=== PATIENT | male | born 1980 | race Hispanic/Latino ===

== ENCOUNTER 2018-03-18 09:27 | Emergency (ER) | payer SELFPAY ==
--- NOTE | 2018-03-18 10:50 | EDPHYS ---
Physician Documentation [facility] Name: Helen Moore Age: 37 yrs Sex: Male : 1980 Arrival Date: 03/18/2018 Time: 09:30 Bed 20 Private MD: None, None ED Physician Jesse Mayberry HPI: 03/18 09:55 This 37 yrs old Male presents to ER via Ambulatory with complaints of Sore Throat, cp Productive Cough - BLOOD. 09:56 The patient or guardian reports cough, with productive sputum, that is purulent. Onset: cp The symptoms/episode began/occurred 10 day(s) ago. Associated signs and symptoms: Pertinent positives: sore throat, Pertinent negatives: diarrhea, fever, vomiting. Severity of symptoms: in the emergency department the symptoms are unchanged despite home interventions. Historical: - Allergies: 09:46 No Known Allergies; iw - Home Meds: 09:46 None [Active]; iw - PMHx: 09:46 None; iw - PSHx: 09:46 Hernia repair; iw - Immunization history:: Adult Immunizations not up to date. - Social history:: Smoking status: Patient uses tobacco products, smokes one-half pack cigarettes per day. - Ebola Screening: : Patient negative for fever greater than or equal to 101.5 degrees Fahrenheit, and additional compatible Ebola Virus Disease symptoms Patient denies exposure to infectious person Patient denies travel to an Ebola-affected area in the 21 days before illness onset No symptoms or risks identified at this time. ROS: 09:57 Eyes: Negative for injury, pain, redness, and discharge. cp 09:57 Constitutional: Negative for body aches, chills, fever, poor PO intake. 09:57 ENT: Positive for sinus congestion, sore throat, Negative for drainage from ear(s), ear pain, difficulty swallowing, difficulty handling secretions. 09:57 Neck: Negative for pain with movement, pain at rest, stiffness. 09:57 Cardiovascular: Negative for chest pain, edema, palpitations. 09:57 Respiratory: Positive for cough, hemoptysis, Negative for dyspnea on exertion, shortness of breath, wheezing. 09:57 Abdomen/GI: Negative for abdominal pain, nausea, vomiting, and diarrhea. 09:57 Skin: Negative for cellulitis, rash. 09:57 All other systems are negative. Exam: 09:59 Head/Face: Normocephalic, atraumatic. cp 09:59 Constitutional: The patient appears in no acute distress, alert, awake, non-diaphoretic, non-toxic, well developed, well nourished. 10:00 Eyes: Periorbital structures: appear normal, Conjunctiva: normal, no exudate, no cp injection, Sclera: no appreciated abnormality, Lids and lashes: appear normal, bilaterally. 10:00 ENT: External ear(s): are unremarkable, Ear canal(s): are normal, clear, TM's: bulging, is not appreciated, bilaterally, dullness, bilaterally, erythema, is not appreciated, bilaterally, Nose: is normal, Mouth: Lips: moist, Oral mucosa: pink and intact, moist, Posterior pharynx: Airway: no evidence of obstruction, patent, Tonsils: no enlargement, no exudate, Uvula: midline, swelling, is not appreciated, erythema, that is mild, exudate, is not appreciated, Voice: is normal. 10:00 Neck: ROM/movement: is normal, is supple, without pain, no range of motions limitations, no meningismus, no nuchal rigidity, Lymph nodes: no appreciated lymphadenopathy. 10:00 Chest/axilla: Inspection: normal, Palpation: is normal, no crepitus, no tenderness. 10:00 Cardiovascular: Rate: normal, Rhythm: regular, Edema: is not appreciated, JVD: is not appreciated. 10:00 Respiratory: the patient does not display signs of respiratory distress, Respirations: normal, no use of accessory muscles, no retractions, no splinting, no tachypnea, labored breathing, is not present, Breath sounds: decreased breath sounds, are not appreciated, stridor, is not appreciated, + upper airway congestion. wheezing: is not appreciated. 10:00 Abdomen/GI: Inspection: abdomen appears normal, Palpation: abdomen is soft and non-tender, in all quadrants. 10:00 Back: pain, is absent, ROM is normal. 10:00 Skin: cellulitis, is not appreciated, no rash present. 10:00 Neuro: Orientation: to person, place \T\ time. Mentation: is normal, Motor: moves all fours, strength is normal, Sensation: is normal. Vital Signs: 09:46 BP 149 / 96; Pulse 78; Resp 16 S; Temp 97.6(TE); Pulse Ox 97% on R/A; Weight 86.18 kg; iw Height 5 ft. 9 in. (175.26 cm); Pain 6; 09:46 Body Mass Index 28.06 (86.18 kg, 175.26 cm) iw MDM: 09:38 Patient medically screened. cp 10:00 Differential diagnosis: bronchitis, URI, pneumonia, strep throat. cp 10:49 Data reviewed: vital signs, nurses notes, lab test result(s), radiologic studies, plain cp films. 10:49 Test interpretation: by ED physician or midlevel provider: plain radiologic studies. cp Counseling: I had a detailed discussion with the patient and/or guardian regarding: the historical points, exam findings, and any diagnostic results supporting the discharge/admit diagnosis, lab results, radiology results, to return to the emergency department if symptoms worsen or persist or if there are any questions or concerns that arise at home. 03/18 09:46 Order name: Strep cp 03/18 10:21 Order name: Group A Streptococcus Rapid Sc; Complete Time: 10:48 EDMS 03/18 10:48 Interpretation: Reviewed. cp 03/18 09:46 Order name: XRAY Chest Pa And Lat (2 Views) cp Administered Medications: No medications were administered Disposition: 18:46 Co-signature as Attending Physician, Jesse Mayberry MD. Disposition: 03/18/18 10:49 Discharged to Home. Impression: Acute bronchitis. - Condition is Stable. - Discharge Instructions: Acute Bronchitis, Adult. - Prescriptions for Tessalon Perles 100 mg Oral Capsule - take 1 capsule by ORAL route every 8 hours As needed; 15 capsule. Zithromax Z- Ludwig 250 mg Oral Tablet - take 1 tablet by ORAL route as directed for 5 days Day 1 - take two (2) tablets one time. Day 2, 3, 4 , 5 take one (1) tablet once daily.; 6 tablet. Albuterol Sulfate 90 mcg/actuation - inhale 1-2 puff by INHALATION route every 4-6 hours; 1 Inhaler. - Medication Reconciliation Form, Thank You Letter, Antibiotic Education, Prescription Opioid Use form. - Follow up: Private Physician; When: 2 - 3 days; Reason: Recheck today's complaints. - Problem is new. - Symptoms are unchanged. Signatures: Dispatcher [employer] EDAlex Yates, AUTOMATION APPLICATION ENGINEER AUTOMATION APPLICATION ENGINEER em Amita Portillo RN RN Doug Villatoro PA PA Jesse Rushing MD MD gs Corrections: (The following items were deleted from the chart) 10:56 10:49 03/18/2018 10:49 Discharged to Home. Impression: Acute bronchitis. Condition is em Stable. Forms are Medication Reconciliation Form, Thank You Letter, Antibiotic Education, Prescription Opioid Use. Follow up: Private Physician; When: 2 - 3 days; Reason: Recheck today's complaints. Problem is new. Symptoms are unchanged. cp
--- NOTE | 2018-03-18 10:50 | ER ---
Nurse's Notes [facility] Name: Helen Moore Age: 37 yrs Sex: Male : 1980 Arrival Date: 03/18/2018 Time: 09:30 Bed 20 Private MD: None, None Diagnosis: Acute bronchitis Presentation: 03/18 09:41 Presenting complaint: Patient states: has been sick for 8-9 days, cough, sore throat, iw no fever, has been taking penicillin. Transition of care: patient was not received from another setting of care. Onset of symptoms was March 10, 2018. Risk Assessment: Do you want to hurt yourself or someone else? Patient reports no desire to harm self or others. Initial Sepsis Screen: Does the patient meet any 2 criteria? No. Patient's initial sepsis screen is negative. Does the patient have a suspected source of infection? No. Patient's initial sepsis screen is negative. Care prior to arrival: None. 09:41 Method Of Arrival: Ambulatory iw 09:41 Acuity: MUSTAPHA 4 iw Historical: - Allergies: 09:46 No Known Allergies; iw - Home Meds: 09:46 None [Active]; iw - PMHx: 09:46 None; iw - PSHx: 09:46 Hernia repair; iw - Immunization history:: Adult Immunizations not up to date. - Social history:: Smoking status: Patient uses tobacco products, smokes one-half pack cigarettes per day. - Ebola Screening: : Patient negative for fever greater than or equal to 101.5 degrees Fahrenheit, and additional compatible Ebola Virus Disease symptoms Patient denies exposure to infectious person Patient denies travel to an Ebola-affected area in the 21 days before illness onset No symptoms or risks identified at this time. Screenin:59 Abuse screen: Denies threats or abuse. Nutritional screening: No deficits noted. em Tuberculosis screening: No symptoms or risk factors identified. Fall Risk None identified. Assessment: 10:00 General: Appears in no apparent distress. comfortable, Behavior is calm, cooperative, em Reports fever for. Pain: Complains of pain in throat Pain currently is 6 out of 10 on a pain scale. Neuro: Level of Consciousness is awake, alert, obeys commands, Oriented to person, place, time, situation. Cardiovascular: Capillary refill < 3 seconds Patient's skin is warm and dry. Respiratory: Reports cough that is productive, pain with cough Airway is patent Respiratory effort is even, unlabored, Respiratory pattern is regular, symmetrical, Breath sounds are clear bilaterally. GI: Abdomen is flat, Patient currently denies nausea, vomiting. : No signs and/or symptoms were reported regarding the genitourinary system. EENT: Nares are clear Oral mucosa is moist. Throat is reddened bilaterally. Derm: Skin is intact, is healthy with good turgor, Skin is pink, warm \T\ dry. Musculoskeletal: Capillary refill < 3 seconds, Range of motion: intact in all extremities. 10:15 Reassessment: Patient appears in no apparent distress at this time. I agree with above iw assessment by Alex Chase LVN. 10:43 Reassessment: Patient appears in no apparent distress at this time. pt wheeled to em radiology dept. Vital Signs: 09:46 BP 149 / 96; Pulse 78; Resp 16 S; Temp 97.6(TE); Pulse Ox 97% on R/A; Weight 86.18 kg; iw Height 5 ft. 9 in. (175.26 cm); Pain 6/10; 09:46 Body Mass Index 28.06 (86.18 kg, 175.26 cm) iw ED Course: 09:30 Patient arrived in ED. sb2 09:31 None, None is Private Physician. sb2 09:38 Doug Helm PA is PHCP. cp 09:38 Jesse Mayberry MD is Attending Physician. cp 09:40 Alex Chase LVN is Primary Nurse. em 09:46 Triage completed. iw 09:46 Arm band placed on. iw 09:59 Patient has correct armband on for positive identification. Placed in gown. Bed in low em position. Call light in reach. 09:59 Strep swab sent to lab. em 10:56 No provider procedures requiring assistance completed. Patient did not have IV access em during this emergency room visit. Administered Medications: No medications were administered Outcome: 10:49 Discharge ordered by . cp 10:56 Discharged to home ambulatory. em 10:56 Condition: good 10:56 Discharge instructions given to patient, Instructed on discharge instructions, follow up and referral plans. medication usage, Demonstrated understanding of instructions, follow-up care, medications, Prescriptions given X 3. 10:56 Patient left the ED. em Signatures: Alex Chase, FIELD CROP GROWER FIELD CROP GROWER Amita River, RN RN iw Doug Helm PA PA cp Billeau, Sheri sb2
--- NOTE | 2018-03-18 11:02 | RAD REPORT ---
EXAM DESCRIPTION: Valentín Watson (2 Views)03/18/2018 10:49 am CLINICAL HISTORY: Cough COMPARISON: None FINDINGS: The lungs appear clear of acute infiltrate. The heart is normal size IMPRESSION: No acute abnormalities displayed
== END 2018-03-18 10:56 | disposition home or self-care (01) ==
LOC: ER 09:27
DX: J20.9 Acute bronchitis, unspecified (principal); F17.210 Nicotine dependence, cigarettes, uncomplicated
CPT/HCPCS: 71046; 87070; 87081; 99283

== ENCOUNTER 2018-04-25 08:43 | Emergency (ER) | payer SELFPAY ==
--- NOTE | 2018-04-25 09:37 | ER ---
Nurse's Notes [facility] Name: Helen Moore Age: 37 yrs Sex: Male : 1980 Arrival Date: 04/25/2018 Time: 08:44 Bed 20 Private MD: Diagnosis: Acute bronchitis Presentation: 04/25 08:47 Presenting complaint: Patient states: productive cough with green sputum x 5 days ago. aa5 Pt reports vomiting and fever x 5 days ago. Pt states "my lungs hurt". 08:47 Transition of care: patient was not received from another setting of care. Onset of aa5 symptoms was April 2018. Risk Assessment: Do you want to hurt yourself or someone else? Patient reports no desire to harm self or others. Care prior to arrival: None. 08:47 Method Of Arrival: Ambulatory aa 08:47 Acuity: MUSTAPHA 3 aa5 09:05 Initial Sepsis Screen: Does the patient meet any 2 criteria? HR > 90 bpm. Does the aa5 patient have a suspected source of infection? Yes: Productive cough/pneumonia. Triage Assessment: 08:55 General: Appears in no apparent distress. comfortable, Behavior is cooperative, bp appropriate for age, anxious. Pain: Complains of pain in GENERALIZED. Historical: - Allergies: 08:47 No Known Allergies; aa5 - PMHx: 08:47 None; aa5 - PSHx: 08:47 Hernia repair; aa5 - Immunization history:: Adult Immunizations up to date. - Ebola Screening: : No symptoms or risks identified at this time. - Social history:: Smoking status: unknown. Screenin:57 Abuse screen: Denies threats or abuse. Denies injuries from another. Nutritional bp screening: No deficits noted. Tuberculosis screening: No symptoms or risk factors identified. Fall Risk None identified. Assessment: 08:56 General: Appears in no apparent distress. comfortable, Behavior is cooperative, bp appropriate for age, anxious. Pain: Complains of pain in GENERALIZED. Neuro: Level of Consciousness is awake, alert, obeys commands, Oriented to person, place, time, situation, Appropriate for age. Cardiovascular: No deficits noted. Respiratory: Reports cough that is productive. GI: Reports vomiting. : No signs and/or symptoms were reported regarding the genitourinary system. EENT: No deficits noted. Derm: No deficits noted. Musculoskeletal: Circulation, motion, and sensation intact. Range of motion: intact in all extremities. 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 PT SPEAKING WITH RAPID, PRESSURED SPEECH. 09:41 Reassessment: Pt opened curtain and Room 20's door and stated "if you are talking about aa5 me I will leave home right now (pt referring to ER staff)". Pt was assured staff was not speaking about him. Pt states "Ok that's fine". Pt pacing in room appears anxious. Pt states no complaints at this time, MANAGER BUSINESS INFORMATION notified. . 09:49 Reassessment: PT D/C HOME AMBULATORY, DX WITH ACUTE BRONCHITIS. PT TOOK URINE CUP FROM bp DRAWERS, TELLING STAFF HE WANTED IT " A SOUVENIR.". Vital Signs: 08:48 Weight 88.45 kg (R); Height 5 ft. 9 in. (175.26 cm) (R); Pain 10/10; aa5 08:54 BP 143 / 91; Pulse 93; Resp 14; Temp 99.3; Pulse Ox 95% ; bp 08:48 Body Mass Index 28.80 (88.45 kg, 175.26 cm) aa5 ED Course: 08:44 Patient arrived in ED. rg4 08:46 Rony Chandler, VIET is Primary Nurse. bp 08:49 Arm band placed on. aa5 08:51 Kyra Luna FNP-C is PHCP. snw 08:51 Luís Andrade MD is Attending Physician. snw 08:51 Triage completed. aa5 08:57 Patient has correct armband on for positive identification. bp 09:31 X-ray completed. Patient tolerated procedure well. Patient moved back from radiology. sw 09:33 Chest Pa And Lat (2 Views) XRAY In Process Unspecified. EDMS 09:42 No provider procedures requiring assistance completed. Patient did not have IV access bp during this emergency room visit. Administered Medications: No medications were administered Outcome: 09:37 Discharge ordered by . snw 09:46 Discharged to home ambulatory. bp 09:46 Discharge instructions given to patient, Instructed on discharge instructions, follow up and referral plans. Demonstrated understanding of instructions, follow-up care, medications, Prescriptions given X 2. 09:46 Condition: stable bp 09:47 Patient left the ED. iw Signatures: Dispatcher [employer] EDMS Kyra Luna, DIGITAL RECRUITER-C DIGITAL RECRUITER-Csnw Amita Portillo, RN RN Nay Thompson RN RN aa5 Isa Toussaint Rubi rg4 Rony Chandler RN RN bp Corrections: (The following items were deleted from the chart) 09:06 08:47 Presenting complaint: Patient states: productive cough with green sputum x 5 days aa5 ago. Pt reports vomiting and fever x 5 days ago. 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 PT SPEAKING WITH RAPID, PRESSURED SPEECH. bp
--- NOTE | 2018-04-25 09:37 | EDPHYS ---
Physician Documentation [facility] Name: Helen Moore Age: 37 yrs Sex: Male : 1980 Arrival Date: 04/25/2018 Time: 08:44 Bed 20 Private MD: ED Physician Luís Andrade HPI: 04/25 09:00 This 37 yrs old Male presents to ER via Ambulatory with complaints of Flu snw Symptoms. 09:00 The patient or guardian reports airway noise, cough. Onset: The symptoms/episode snw began/occurred suddenly, 5 day(s) ago, and became persistent. Associated signs and symptoms: Pertinent positives: fever, sore throat. Severity of symptoms: At their worst the symptoms were moderate. The patient has experienced a previous episode, last month. The patient has not recently seen a physician. Historical: - Allergies: 08:47 No Known Allergies; aa5 - PMHx: 08:47 None; aa5 - PSHx: 08:47 Hernia repair; aa5 - Immunization history:: Adult Immunizations up to date. - Ebola Screening: : No symptoms or risks identified at this time. - Social history:: Smoking status: unknown. ROS: 08:58 Eyes: Negative for injury, pain, redness, and discharge. snw 08:58 Neck: Negative for injury, pain, and swelling, Cardiovascular: Negative for chest pain, palpitations, and edema, Abdomen/GI: Negative for abdominal pain, nausea, vomiting, diarrhea, and constipation, Back: Negative for injury and pain, : Negative for injury, bleeding, discharge, and swelling, MS/Extremity: Negative for injury and deformity, Skin: Negative for injury, rash, and discoloration, Neuro: Negative for headache, weakness, numbness, tingling, and seizure. 08:58 Constitutional: Positive for body aches, fever, malaise. 08:58 ENT: Positive for sore throat. 08:58 Respiratory: Positive for cough, with no reported sputum. Exam: 08:58 Head/Face: Normocephalic, atraumatic. Eyes: Pupils equal round and reactive to light, snw extra-ocular motions intact. Lids and lashes normal. Conjunctiva and sclera are non-icteric and not injected. Cornea within normal limits. Periorbital areas with no swelling, redness, or edema. ENT: Nares patent. No nasal discharge, no septal abnormalities noted. Tympanic membranes are normal and external auditory canals are clear. Oropharynx with moderate/severe redness, no swelling, or masses, exudates, or evidence of obstruction, uvula midline. Mucous membranes moist. Hoarse voice Neck: Trachea midline, no thyromegaly or masses palpated, and no cervical lymphadenopathy. Supple, full range of motion without nuchal rigidity, or vertebral point tenderness. No Meningismus. Chest/axilla: Normal chest wall appearance and motion. Nontender with no deformity. No lesions are appreciated. Cardiovascular: Regular rate and rhythm with a normal S1 and S2. No gallops, murmurs, or rubs. Normal PMI, no JVD. No pulse deficits. Respiratory: Lungs have equal breath sounds bilaterally, clear to auscultation and percussion. No rales, rhonchi or wheezes noted. No increased work of breathing, no retractions or nasal flaring. Abdomen/GI: Soft, non-tender, with normal bowel sounds. No distension or tympany. No guarding or rebound. No evidence of tenderness throughout. Back: No spinal tenderness. No costovertebral tenderness. Full range of motion. Skin: Warm, dry with normal turgor. Normal color with no rashes, no lesions, and no evidence of cellulitis. MS/ Extremity: Pulses equal, no cyanosis. Neurovascular intact. Full, normal range of motion. Neuro: Awake and alert, GCS 15, oriented to person, place, time, and situation. Cranial nerves II-XII grossly intact. Motor strength 5/5 in all extremities. Sensory grossly intact. Cerebellar exam normal. Normal gait. Psych: Awake, alert, with orientation to person, place and time. Behavior, mood, and affect are within normal limits. 08:58 Constitutional: The patient appears alert, awake, restless. Vital Signs: 08:48 Weight 88.45 kg (R); Height 5 ft. 9 in. (175.26 cm) (R); Pain 10/10; aa5 08:54 BP 143 / 91; Pulse 93; Resp 14; Temp 99.3; Pulse Ox 95% ; bp 08:48 Body Mass Index 28.80 (88.45 kg, 175.26 cm) aa5 MDM: 08:52 Patient medically screened. snw 09:51 Data reviewed: vital signs, nurses notes. Data interpreted: Pulse oximetry: on room air snw is 95 %. Interpretation: acceptable. Counseling: I had a detailed discussion with the patient and/or guardian regarding: the historical points, exam findings, and any diagnostic results supporting the discharge/admit diagnosis, the presence of at least one elevated blood pressure reading (>120/80) during this emergency department visit, radiology results, the need for outpatient follow up, to return to the emergency department if symptoms worsen or persist or if there are any questions or concerns that arise at home. Special discussion: I have referred the patient to see his PCP for further evaluation of high blood pressure. Based on the history and exam findings, there is no indication for further emergent testing or inpatient evaluation. I discussed with the patient/guardian the need to see the primary care provider for further evaluation of the symptoms. 04/25 08:52 Order name: Chest Pa And Lat (2 Views) XRAY snw Administered Medications: No medications were administered Disposition: 11:39 Co-signature as Attending Physician, Luís Andrade MD. rn Disposition: 04/25/18 09:37 Discharged to Home. Impression: Acute bronchitis. - Condition is Stable. - Discharge Instructions: Acute Bronchitis, Adult, Fever, Adult, Hypertension, Cough, Adult, Rehydration, Adult. - Prescriptions for Zyrtec 10 mg Oral Tablet - take 1 tablet by ORAL route once daily As needed; 20 tablet. Prednisone 20 mg Oral Tablet - take 2 tablet by ORAL route once daily for 5 days; 10 tablet. - Work release form, Medication Reconciliation Form, Thank You Letter, Antibiotic Education, Prescription Opioid Use form. - Follow up: Private Physician; When: 2 - 3 days; Reason: Recheck today's complaints, Continuance of care, Re-evaluation by your physician. Follow up: Emergency Department; When: As needed; Reason: Worsening of condition. Signatures: Dispatcher [employer] EDKyra Larson, TONI-C DEFENSIVE LINE COACH-Csnw Amita Portillo, Luís Resendez RN, MD MD rn Calderon, Audri, RN RN aa5 Rony Chandler RN RN bp Corrections: (The following items were deleted from the chart) 09:47 09:37 04/25/2018 09:37 Discharged to Home. Impression: Acute bronchitis. Condition is iw Stable. Discharge Instructions: Acute Bronchitis, Adult, Fever, Adult, Hypertension, Cough, Adult, Rehydration, Adult. Prescriptions for Zyrtec 10 mg Oral Tablet - take 1 tablet by ORAL route once daily As needed; 20 tablet, Prednisone 20 mg Oral Tablet - take 2 tablet by ORAL route once daily for 5 days; 10 tablet. and Forms are Work release form, Medication Reconciliation Form, Thank You Letter, Antibiotic Education, Prescription Opioid Use. Follow up: Private Physician; When: 2 - 3 days; Reason: Recheck today's complaints, Continuance of care, Re-evaluation by your physician. Follow up: Emergency Department; When: As needed; Reason: Worsening of condition. snw
--- NOTE | 2018-04-25 09:46 | RAD REPORT ---
EXAM DESCRIPTION: Valentín Watson (2 Views)04/25/2018 9:34 am CLINICAL HISTORY: Cough COMPARISON: March 2018 FINDINGS: The lungs appear clear of acute infiltrate. The heart is normal size IMPRESSION: No acute abnormalities displayed
== END 2018-04-25 09:47 | disposition home or self-care (01) ==
LOC: ER 08:43
DX: J20.9 Acute bronchitis, unspecified (principal)
CPT/HCPCS: 71046; 99283

== ENCOUNTER 2018-04-26 17:47 | Emergency (ER) | payer SELFPAY ==
--- NOTE | 2018-04-26 18:35 | ER ---
Nurse's Notes [facility] Name: Helen Moore Age: 37 yrs Sex: Male : 1980 Arrival Date: 04/26/2018 Time: 17:51 Bed 15 Private MD: Diagnosis: Acute ethmoidal sinusitis, unspecified;Acute maxillary sinusitis, unspecified;Bronchitis, not specified as acute or chronic Presentation: 04/26 17:51 Presenting complaint: Patient states: i am coughing i have a lot of mucous its all day. tw2 Transition of care: patient was not received from another setting of care. Onset of symptoms was April 26, 2018. Risk Assessment: Do you want to hurt yourself or someone else? Patient reports no desire to harm self or others. Initial Sepsis Screen: Does the patient meet any 2 criteria? No. Patient's initial sepsis screen is negative. Does the patient have a suspected source of infection? No. Patient's initial sepsis screen is negative. Care prior to arrival: None. 17:51 Method Of Arrival: Ambulatory tw2 17:51 Acuity: MUSTAPHA 4 tw2 Historical: - Allergies: 17:51 No Known Allergies; tw2 - Home Meds: 17:51 None [Active]; tw2 - PMHx: 17:51 None; tw2 - PSHx: 17:51 Hernia repair; tw2 - Immunization history:: Adult Immunizations. - Social history:: Smoking status: Patient uses tobacco products, smokes one pack cigarettes per day. Patient uses alcohol, "2 weeks ago". street drugs, cocaine, "2 weeks ago". - Ebola Screening: : Patient denies travel to an Ebola-affected area in the 21 days before illness onset. Screenin:03 Abuse screen: Denies threats or abuse. Denies injuries from another. Nutritional jl7 screening: No deficits noted. Tuberculosis screening: No symptoms or risk factors identified. Fall Risk None identified. Assessment: 18:03 General: Appears in no apparent distress. uncomfortable, Behavior is anxious, Pt states jl7 "I've been having mucous for 5 days now and y'all didn't do anything for me. I need a blood test to tell me what kind of virus I have.". Pain: Denies pain. Neuro: Level of Consciousness is awake, alert, obeys commands, Oriented to person, place, time, situation. Cardiovascular: Patient's skin is warm and dry. Respiratory: Airway is patent Respiratory effort is even, unlabored, Respiratory pattern is regular, symmetrical. GI: No signs and/or symptoms were reported involving the gastrointestinal system. : No signs and/or symptoms were reported regarding the genitourinary system. EENT: No signs and/or symptoms were reported regarding the EENT system. Derm: Skin is pink, warm \\T\\ dry. Musculoskeletal: No signs and/or symptoms reported regarding the musculoskeletal system. Vital Signs: 17:52 BP 148 / 95; Pulse 94; Resp 18; Temp 98.3(O); Pulse Ox 99% on R/A; Weight 86.18 kg (R); tw2 Height 5 ft. 9 in. (175.26 cm); Pain 0/10; 17:52 Body Mass Index 28.06 (86.18 kg, 175.26 cm) tw2 ED Course: 17:51 Patient arrived in ED. mr 17:51 Triage completed. tw2 17:53 Sunny Valencia, VIET is Primary Nurse. jl7 17:53 Arm band placed on. tw2 17:59 Omid Garces MD is Attending Physician. kdr 18:03 Patient has correct armband on for positive identification. Bed in low position. Call jl7 light in reach. Side rails up X 1. 18:42 No provider procedures requiring assistance completed. Patient did not have IV access jl7 during this emergency room visit. Administered Medications: 18:30 Drug: LevaQUIN 750 mg Route: PO; jl7 18:45 Follow up: Response: No adverse reaction jl7 Outcome: 18:34 Discharge ordered by . kdr 18:42 Discharged to home ambulatory. jl7 18:42 Condition: stable 18:42 Discharge instructions given to patient, Instructed on discharge instructions, follow up and referral plans. medication usage, Demonstrated understanding of instructions, follow-up care, medications, Prescriptions given X 1. 18:44 Patient left the ED. jl7 Signatures: Omid Garces MD MD kdr Rivera, Mary Alicia Suarez, RN RN tw2 Sunny Valencia RN RN jl7
--- NOTE | 2018-04-26 18:35 | EDPHYS ---
Physician Documentation [facility] Name: Helen Moore Age: 37 yrs Sex: Male : 1980 Arrival Date: 04/26/2018 Time: 17:51 Bed 15 Private MD: ED Physician Omid Garces HPI: 04/26 18:19 This 37 yrs old Male presents to ER via Ambulatory with complaints of Flu kdr Symptoms. 18:19 The patient or guardian reports cough, that is intermittent, with productive sputum, kdr difficulty breathing. Onset: The symptoms/episode began/occurred 1 month(s) ago. Modifying factors: The symptoms are alleviated by nothing. the symptoms are aggravated by activity. Associated signs and symptoms: Pertinent positives: diarrhea, earache, rhinorrhea, sore throat, Upper respiratory congestion, this patient has no pertinent positive symptoms. Severity of symptoms: At their worst the symptoms were mild in the emergency department the symptoms. The patient has experienced similar episodes in the past. The patient has been recently seen at the [facility] Emergency Department, yesterday. Historical: - Allergies: 17:51 No Known Allergies; tw2 - Home Meds: 17:51 None [Active]; tw2 - PMHx: 17:51 None; tw2 - PSHx: 17:51 Hernia repair; tw2 - Immunization history:: Adult Immunizations. - Social history:: Smoking status: Patient uses tobacco products, smokes one pack cigarettes per day. Patient uses alcohol, "2 weeks ago". street drugs, cocaine, "2 weeks ago". - Ebola Screening: : Patient denies travel to an Ebola-affected area in the 21 days before illness onset. ROS: 18:19 Constitutional: Negative for fever, chills, and weight loss, Eyes: Negative for injury, kdr pain, redness, and discharge, Neck: Negative for injury, pain, and swelling, Cardiovascular: Negative for chest pain, palpitations, and edema, Respiratory: Negative for shortness of breath, cough, wheezing, and pleuritic chest pain, Abdomen/GI: Negative for abdominal pain, nausea, vomiting, diarrhea, and constipation, Back: Negative for injury and pain, : Negative for injury, bleeding, discharge, and swelling, MS/Extremity: Negative for injury and deformity, Skin: Negative for injury, rash, and discoloration, Neuro: Negative for headache, weakness, numbness, tingling, and seizure activity. Psych: Negative for depression, anxiety, suicide ideation, homicidal ideation, and hallucinations, Allergy/Immunology: Negative for hives, rash, and allergies, Endocrine: Negative for neck swelling, polydipsia, polyuria, polyphagia, and marked weight changes, Hematologic/Lymphatic: Negative for swollen nodes, abnormal bleeding, and unusual bruising. 18:19 ENT: Positive for nasal discharge, sinus congestion, sinus pain. Exam: 18:19 Constitutional: This is a well developed, well nourished patient who is awake, alert, kdr and in no acute distress. Head/Face: Normocephalic, atraumatic. Eyes: Pupils equal round and reactive to light, extra-ocular motions intact. Lids and lashes normal. Conjunctiva and sclera are non-icteric and not injected. Cornea within normal limits. Periorbital areas with no swelling, redness, or edema. Neck: Trachea midline, no thyromegaly or masses palpated, and no cervical lymphadenopathy. Supple, full range of motion without nuchal rigidity, or vertebral point tenderness. No Meningismus. Chest/axilla: Normal chest wall appearance and motion. Nontender with no deformity. No lesions are appreciated. 18:19 Head/face: Noted is Sinus tenderness, that is mild, is located over the right ethmoid sinus, left ethmoid sinus, right maxillary sinus and left maxillary sinus. 18:19 ENT: Nose: Mouth: is normal, Posterior pharynx: is normal. Vital Signs: 17:52 BP 148 / 95; Pulse 94; Resp 18; Temp 98.3(O); Pulse Ox 99% on R/A; Weight 86.18 kg (R); tw2 Height 5 ft. 9 in. (175.26 cm); Pain 0/10; 17:52 Body Mass Index 28.06 (86.18 kg, 175.26 cm) tw2 MDM: 18:19 Data reviewed: vital signs, nurses notes. Counseling: I had a detailed discussion with kdr the patient and/or guardian regarding: the need for outpatient follow up. 18:34 Patient medically screened. kdr Administered Medications: 18:30 Drug: LevaQUIN 750 mg Route: PO; jl7 18:45 Follow up: Response: No adverse reaction jl7 Disposition: 04/26/18 18:34 Discharged to Home. Impression: Acute ethmoidal sinusitis, unspecified, Acute maxillary sinusitis, unspecified, Bronchitis, not specified as acute or chronic. - Condition is Stable. - Discharge Instructions: Sinusitis, Adult, Acute Bronchitis, [id number]. - Prescriptions for Levaquin 500 mg Oral Tablet - take 1 tablet by ORAL route once daily for 10 days; 10 tablet. - Medication Reconciliation Form, Thank You Letter, Antibiotic Education, Work release form form. - Follow up: Private Physician; When: 2 - 3 days; Reason: If symptoms return, Further diagnostic work-up, Recheck today's complaints, Continuance of care, Re-evaluation by your physician. - Problem is new. - Symptoms are unchanged. - Notes: Continue all other medications as directed Signatures: Omid Garces MD MD [facility] Alicia Suarez RN RN tw2 Sunny Valencia RN RN jl7 Corrections: (The following items were deleted from the chart) 18:44 18:34 04/26/2018 18:34 Discharged to Home. Impression: Acute ethmoidal sinusitis, jl7 unspecified; Acute maxillary sinusitis, unspecified; Bronchitis, not specified as acute or chronic. Condition is Stable. Forms are Work release form, Medication Reconciliation Form, Thank You Letter, Antibiotic Education, Prescription Opioid Use. Follow up: Private Physician; When: 2 - 3 days; Reason: If symptoms return, Further diagnostic work-up, Recheck today's complaints, Continuance of care, Re-evaluation by your physician. Problem is new. Symptoms are unchanged. kdr
[2018-04-26] MEDS ORDERED: levoFLOXacin 750 MG TAB ONE (18:36)
== END 2018-04-26 18:44 | disposition home or self-care (01) ==
LOC: ER 17:47
DX: J40 Bronchitis, not specified as acute or chronic (principal); J01.20 Acute ethmoidal sinusitis, unspecified; J01.00 Acute maxillary sinusitis, unspecified; Z72.0 Tobacco use
CPT/HCPCS: 99283